=== PATIENT | female | born 2000 | race Two or more races ===

== ENCOUNTER 2019-02-28 09:48 | Emergency (ER) | payer SELFPAY ==
[~2019-02-28] VITALS: Ht 165.1 cm; Wt 57.0 kg
[2019-02-28 09:59] VITALS: BP 111/58
[2019-02-28] MEDS ORDERED: ACETAMINOPHEN 325MG TABLET PO ONE (10:45)
== END 2019-02-28 11:36 | disposition home or self-care (01) ==
LOC: ER 09:48
DX: R51 Headache (principal); H53.8 Other visual disturbances; R11.0 Nausea; W18.39XA Other fall on same level, initial encounter; Y93.89 Activity, other specified; Y92.89 Other specified places as the place of occurrence of the external cause; Y99.8 Other external cause status
CPT/HCPCS: 99282

== ENCOUNTER 2019-08-22 22:52 | Emergency (ER) | payer SELFPAY ==
[~2019-08-22] VITALS: Ht 165.1 cm; Wt 54.0 kg
[2019-08-23] MEDS ORDERED: ACETAMINOPHEN 500MG TABLET PO ONE
[2019-08-23 00:50] LABS: UCG SCREEN NEGATIVE
[2019-08-23 02:52] VITALS: BP 124/64
== END 2019-08-23 02:55 | disposition home or self-care (01) ==
LOC: ER 22:52
DX: S63.92XA Sprain of unspecified part of left wrist and hand, initial encounter (principal); Z91.018 Allergy to other foods; Z91.09 Other allergy status, other than to drugs and biological substances; Y04.0XXA Assault by unarmed brawl or fight, initial encounter; Y93.89 Activity, other specified; Y92.018 Other place in single-family (private) house as the place of occurrence of the external cause
CPT/HCPCS: 73130; 81025; 99284